=== PATIENT | female | born 1950 | race Caucasian/White ===

== ENCOUNTER → 2017-12-25 | Outpatient (CLI) | payer BC ==
--- NOTE | 2017-12-25 10:58 | PCVCIMAG ---
EXAM: BILATERAL CAROTID DUPLEX INDICATION: Carotid Occlusive Disease. FINDINGS: Doppler Measurements (centimeters per second): RIGHT: Peak CCA-92, Peak ECA-84, Diastolic ICA-36, Peak ICA-121, ICA/CCA Ratio-1.3. LEFT: Peak CCA-87, Peak ECA-174, Diastolic ICA-27, Peak ICA-89, ICA/CCA Ratio-1.0. RIGHT CAROTID: The carotid bulb has mild plaque. The proximal internal carotid artery shows <40% stenosis. The common carotid artery shows no significant stenosis. The external carotid artery shows no significant stenosis. LEFT CAROTID: The carotid bulb has no significant plaque. The proximal internal carotid artery shows no significant stenosis. The common carotid artery shows no significant stenosis. The external carotid artery shows 60% stenosis. Antegrade flow in both vertebral arteries. IMPRESSION: <40% stenosis of the right internal carotid artery with mild plaque. No significant stenosis of the left internal carotid artery with no significant plaque. No change since October 2015. LOC:[id number]
--- NOTE | 2017-12-25 11:02 | PCVCIMAG ---
EXAM: ULTRASOUND OF THE THYROID INDICATION: Thyroid nodules. FINDINGS: The right thyroid lobe measures 1.8 x 2.4 x 5.0 cm. The left thyroid lobe measures 1.8 x 1.8 x 4.5 cm. Well-circumscribed partially solid partially cystic nodule mid/upper right thyroid lobe measures 1.5 x 1.6 x 1.8 cm. This is not definitely change compared to October 2015 study. Adjacent to the inferior margin of this nodule is a 0.6 x 0.6 x 0.6 partially solid/partially cystic nodule in the mid right thyroid lobe which is unchanged since the prior study. No left thyroid lobe nodules. IMPRESSION: Two partially cystic/partially solid nodules in the right thyroid lobe as detailed above are unchanged since October 2015 study. LOC:[id number]
== END | disposition home or self-care (01) ==
LOC: PCVCIMAG 13:00
PROVIDERS: ATTEND Internal Medicine Cardiovascular Disease
DX: E04.1 Nontoxic single thyroid nodule (principal); I65.21 Occlusion and stenosis of right carotid artery; I77.9 Disorder of arteries and arterioles, unspecified; Z72.0 Tobacco use
CPT/HCPCS: 76536; 93880

== ENCOUNTER → 2018-12-24 | Outpatient (CLI) | payer BC ==
--- NOTE | 2018-12-24 12:26 | PCVCIMAG ---
APPROVED REPORT Study performed: 12/24/2018 11:17:54 Exam: Stress Echocardiogram Indication: fam hx cad, tobacco use, hlp Patient Location: Echo lab Stress Nurse: Jessica Mcdermott RN Status: routine Ht: 5 ft 4 in HR: 74 bpm BP: 144/82 mmHg Rhythm: NSR Procedure The patient underwent an Exercise Stress Test using the Eduardo Protocol. Blood pressure, heart rate, and EKG were monitored. An Echocardiogram was performed by rvda master certified rv technician in four stages in quad fashion. At peak stress, four selected images were obtained and placed side by side with resting images for comparison. Stress Test Details Stress Test: Exercise stress testing was performed using a Eduardo protocol. HR Resting HR: 74 bpmMax Heart Rate (APMHR): 150 bpm Max HR Achieved: 134 bpmTarget HR (85% APMHR): 127 bpm % of APMHR: 89 Recovery HR: 88 bpm HR response to stress: Normal HR response to stress BP Resting BP: 144/82 mmHg Max BP: 216/80 mmHg Recovery BP: 164/74 mmHg BP response to stress: Normal blood pressure response to stress. ECG Resting ECG: Sinus Rhythm Stress ECG: Sinus Rhythm ST Change: Normal Arrhythmia: None Recovery ECG: Sinus Rhythm Recovery ST Change: Normal Recovery Arrhythmia: None Clinical Reason for Termination: Maximal effort Stress Symptoms: Dyspnea Exercise duration: 6 min 12 sec Highest Stage Achieved: Stage 3: 3.4 mph at 14% grade. Exercise capacity: 7.5 METs Overall Exercise Capacity for Age: Normal Scale: Sedentary Angina Score: None Pre-Stress Echo The resting Echocardiogram showed normal left ventricular contractility with an estimated Ejection Fraction of about >55%. The resting echocardiogram demonstrated normal wall motion in all wall segments. Post-Stress Echo The stress Echocardiogram showed normal left ventricular contractility with an estimated Ejection Fraction of about 65%. Compared to rest, there were no stress-induced wall motion abnormalities. Clinical No clinical or ECG evidence for ischemia. Conclusion Clinical Response: Non-ischemic Exercise Capacity: Average Stress ECG Response: Non-ischemic Stress Echo Images: Non-ischemic The left ventricle is normal in size and wall thickness in both the rest and stress images. Normal color doppler. No regurgitation or stenosis present on pulmonic and aortic valves. Trace mitral regurgitation. Mild tricuspid regurgitation with PAP of 45 mmHg. Other Information Study Quality: Adequate <Conclusion> The left ventricle is normal in size and wall thickness in both the rest and stress images. Normal color doppler. No regurgitation or stenosis present on pulmonic and aortic valves. Trace mitral regurgitation. Mild tricuspid regurgitation with PAP of 45 mmHg.
== END | disposition home or self-care (01) ==
LOC: PCVCIMAG 11:05
PROVIDERS: ATTEND Internal Medicine Cardiovascular Disease
DX: I07.1 Rheumatic tricuspid insufficiency (principal); E78.00 Pure hypercholesterolemia, unspecified; Z72.0 Tobacco use; Z82.49 Family history of ischemic heart disease and other diseases of the circulatory system; Z90.710 Acquired absence of both cervix and uterus; Z83.3 Family history of diabetes mellitus
CPT/HCPCS: 93325; 93351